=== PATIENT | male | born 1995 | race African-American/Black ===

== ENCOUNTER 2017-04-04 21:41 | Emergency (ER) | payer OTHER ==
[~2017-04-04] VITALS: Ht 182.9 cm; Wt 77.2 kg
[2017-04-04 21:48] VITALS: TEMP 36.7; Ht 182.9 cm; Wt 77.2 kg
[2017-04-04] MEDS ORDERED: IBUPROFEN 600 MG TAB PO STA (21:55)
--- NOTE | 2017-04-04 22:11 | DIAGNOSTIC IMAGING REPORT ---
L ANKLE MIN 3 VIEWS ROUTINE CLINICAL HISTORY: 22 years-old Male presenting with pain, twist. TECHNIQUE: Frontal, oblique, and lateral views of the left ankle were obtained. COMPARISON: None. FINDINGS: Ankle mortise intact. No acute fracture or malalignment. No advanced degenerative change. No radiographic soft tissue abnormality. IMPRESSION: No acute osseous injury. Electronically signed by: Kendrick [place] M.D. 04/04/2017 10:10 PM Dictated Date/Time: 04/04/2017 10:08 PM
[2017-04-04] MEDS ORDERED: CHOL2000 PO (22:14)
[2017-04-04] MEDS ORDERED: MESA0.37 PO (22:14)
--- NOTE | 2017-04-04 22:22 | EMERGENCY ROOM VISIT NOTE ---
ED Visit Note First contact with patient: 21:47 CHIEF COMPLAINT: Ankle pain HISTORY OF PRESENT ILLNESS: This 22-year-old patient presents to the emergency department with friends after sustaining an injury to the left ankle and foot with a twisting, inversion motion playing basketball. The patient complains of pain along the outside of the ankle. The patient denies pain of the foot. The patient rates the pain as throbbing and 6/10. The patient is not able to bear weight on the foot. Constant pain, worse with movement, weight bearing, and the dependent position. No knee pain, the patient is able to move their toes. No numbness or weakness of the foot, no laceration. The patient has not had a previous fracture to this ankle. The patient has taken nothing for the pain. The patient denies any other injury. Pt has had multiple sprains to this ankle in the past. REVIEW OF SYSTEMS: A 6 system review of systems was completed with positives and pertinent negatives listed in the HPI. ALLERGIES: none MEDICATIONS: none PMH: Ankle sprains SOCIAL HISTORY: no drug use PHYSICAL EXAM: Vital Signs: Reviewed Nurse's notes, vital signs stable. GENERAL : pleasant male, no acute distress, but appears in pain, well-developed, well- nourished. MENTAL STATUS: Alert, oriented to person place and time, and cooperative. MUSCULOSKELETAL: The left ankle is swollen and tender over the lateral malleolus, but the skin is intact and there is no ligamentous instability. There is no fifth metatarsal tenderness. There is no tenderness over the rest of the foot. There is no calf or tibia/fibular tenderness. There is no visual deformity. The foot and toes are warm and well-perfused. Dorsalis pedis pulse 2+. Sensation to pain and light touch is intact. Capillary refill less than 2 seconds. EMERGENCY DEPARTMENT COURSE: I examined the patient. ice was applied and patient was given IBU. X-rays of the left ankle were reviewed by myself and read by radiology and reveal L ANKLE MIN 3 VIEWS ROUTINE CLINICAL HISTORY: 22 years-old Male presenting with pain, twist. TECHNIQUE: Frontal, oblique, and lateral views of the left ankle were obtained. COMPARISON: None. FINDINGS: Ankle mortise intact. No acute fracture or malalignment. No advanced degenerative change. No radiographic soft tissue abnormality. IMPRESSION: No acute osseous injury. Electronically signed by: Kendrick [place], M.D.. Gel splint was applied to the ankle under my direction and the position was satisfactory. Neurovascular status was rechecked and intact. The patient was instructed on the use of crutches. Patient was advised to follow-up with orthopedics in a few days if symptoms persist or here in the ER sooner for severe pain, numbness, tingling, worsening signs or symptoms or as needed. The patient was discharged home in good condition. Differential diagnosis includes sprain, strain, fracture, dislocation and other etiologies were considered. DIAGNOSIS: #1 left ankle sprain DISCHARGE INSTRUCTIONS: Ibuprofen(Motrin, Advil) may be used for fever or pain. Use 600mg every six hours as needed. Take with food. Avoid using more than 2400mg in a 24 hour period. Do not use 2400mg per day for more than three consecutive days without physician direction. Prolonged inappropriate use can lead to stomach upset or ulcers. This medication can be taken if you need to drive, work, or perform activities which may be dangerous when taking narcotic pain medication. (AND/OR) Acetaminophen(Tylenol) may be used for fever or pain. Use 1000mg every six hours as needed. Avoid using more than 3000mg in a 24 hour period. This medication can be taken if you need to drive, work, or perform activities which may be dangerous when taking narcotic pain medication. Ice compresses for 20 minutes at a time four times daily for 2-3 days. Use the crutches as instructed. Rest and elevate your injury. Wear ankle gel splint until pain subsides. Do not have it so tight that you cannot feel your foot. Continue current medications. Return to the ER immediately for any numbness, tingling, severe pain, extreme swelling in the extremity or as needed. Call Orthopedics in 3-5 days if symptoms persist to arrange follow up for your injury. Current/Historical Medications Scheduled Cholecalciferol (Vitamin D3), Unknown Dose PO DAILY Mesalamine (Apriso), 12 CAP PO WEEKLY Allergies Coded Allergies: Infliximab (Verified Allergy, Intermediate, CHEST TIGHTNESS, 04/04/17) Amoxicillin (Verified Allergy, Unknown, UNKNOWN- CHILDHOOD, 04/04/17) Vital Signs Date Time Temp Pulse Resp B/P (MAP) Pulse Ox O2 Delivery O2 Flow Rate FiO2 04/04/17 21:48 36.7 116 18 120/72 98 Room Air Medications Administered Medications (Trade) Dose Ordered Sig/Khris Route Start Time Stop Time Status Last Admin Dose Admin Ibuprofen (Motrin Tab) 600 mg NOW STAT PO 04/04/17 21:55 04/04/17 21:58 DC 04/04/17 21:55 600 MG Departure Information Referrals No Doctor, Assigned (PCP) Patient Instructions [facility]
[2017-04-04 22:31] VITALS: BP 124/76; PULSE 87; O2SAT 99
== END 2017-04-04 22:32 | disposition home or self-care (01) ==
LOC: C.EDB 21:44 → C.EDD 22:32
DX: S93.402A Sprain of unspecified ligament of left ankle, initial encounter (principal); X50.9XXA Other and unspecified overexertion or strenuous movements or postures, initial encounter